=== PATIENT | female | born 1945 | race Two or more races ===

== ENCOUNTER 2019-04-20 17:57 | Inpatient (IN) | payer MEDICARE, OTHER ==
[~2019-04-20] VITALS: Ht 165.1 cm; Wt 75.7 kg
--- NOTE | 2019-04-20 18:00 | NUR ---
PT BIBA C/O ABDOMINAL PAIN WHICH STARTED TODAY. UNABLE TO SCALE PAIN. PT LETHARGIC, VSS, BREATHING EVEN AND UNLABORED ON ROOM AIR W/ AND NOTED. WILL CONTINUE TO MONITOR. PT CONNECTED TO CARDAIC MONITOR AND POX
[2019-04-20] MEDS ORDERED: MORPHINE SULFATE INJ 4 MG/ML DISP.SYRIN ONE (18:20)
[2019-04-20] MEDS ORDERED: ONDANSETRON HCL/PF 4 MG/2 ML VIAL ONE (18:20)
[2019-04-20] MEDS ORDERED: MORPHINE SULFATE INJ 2 MG/ML DISP.SYRIN IV ONE (18:30)
[2019-04-20] MEDS ORDERED: IV NS 0.9% 1,000 ML BAG IV ONE (18:30)
[2019-04-20] MEDS ORDERED: ONDANSETRON HCL/PF 4 MG/2 ML VIAL IVP ONE (18:30)
[2019-04-20 18:34] LABS: BASOPHILS # (AUTO) 0.1 /CMM (0.0-0.2); EOSINOPHILS % (AUTO) 2.7 % (0.0-6.0); HEMATOCRIT 28 % (33-45); HEMOGLOBIN 9.9 g/dL (11.5-14.8); LYMPHOCYTES # (AUTO) 0.5 /CMM (0.8-4.8); LYMPHOCYTES % (AUTO) 14.3 % (20.0-44.0); MEAN CORPUSCULAR HGB CONC 35 g/dl (31.0-36.0); MEAN CORPUSCULAR VOLUME 93 fL (82-100); MONOCYTES # (AUTO) 0.2 /CMM (0.1-1.30); MONOCYTES % (AUTO) 6.2 % (2.0-12.0); NEUTROPHILS # (AUTO) 2.4 /CMM (1.8-8.9); NEUTROPHILS % (AUTO) 74.8 % (43.0-81.0); PLATELET COUNT (AUTO) 90 /CMM (150-450); RED BLOOD CELL COUNT(AUTO) 3.05 MIL/uL (4.0-5.2); WHITE BLOOD COUNT (AUTO) 3.2 K/uL (4.3-11.0)
[2019-04-20 18:46] LABS: CALCIUM, SERUM 9.1 mg/dL (8.5-10.1); POTASSIUM 4.2 mmol/L (3.5-5.1)
[2019-04-20 18:51] LABS: ALBUMIN 3.2 g/dL (3.4-5.0); BILIRUBIN,DIRECT 0.3 mg/dL (0.0-0.2); BILIRUBIN,TOTAL 0.9 mg/dL (0.2-1.0)
[2019-04-20 18:57] LABS: APPEARANCE,URINE Clear (CLEAR); BILIRUBIN,URINE Negative (NEGATIVE); BLOOD, URINE Large Ery/uL (NEGATIVE); COLOR,URINE Yellow (YELLOW); KETONES,URINE Negative (NEGATIVE); LEUKOCYTE ESTERASE ,URINE Trace (NEGATIVE); NITRITE, URINE Negative (NEGATIVE); PROTEIN,URINE 100 mg/dl (NEGATIVE); UGLUCOSE 500 MG/DL mg/dL (NEGATIVE); UROBILINOGEN,URINE 0.2 EU/dL (0.2)
[2019-04-20 19:05] LABS: BAND % (MANUAL) 3 % (0.0-5.0); LYMPHOCYTES % (MANUAL) 15 % (16-48); MONOCYTES % (MANUAL) 5 % (0-11.0); NEUTROPHILS % (MANUAL) 77 (42-76)
[2019-04-20 19:33] LABS: BACTERIA,URINE 1+ /HPF (None Seen); RBC,URINE 81-100 /HPF (0-2); SQUAMOUS EPITHELIAL CELL,UR Few /HPF (None Seen)
[2019-04-20] MEDS ORDERED: IV NS 0.9% 250 ML IV ONE (19:53)
[2019-04-20] MEDS ORDERED: IOHEXOL-300 100 ML VIAL IV ONE (19:53)
[2019-04-20] MEDS ORDERED: CT SWABBABLE VALVE TRANS SET 1 EA INFUS.SET MC ONE (19:53)
[2019-04-20 20:55] VITALS: BP 156/85
[2019-04-20] MEDS ORDERED: CEFTRIAXONE 1GM BAG (ER ONLY) 50 ML IV ONE (21:30)
[2019-04-20] MEDS ORDERED: CEFTRIAXONE 1GM BAG (ER ONLY) 1 GM/50 ML PIGGYBACK IV ONE (21:30)
--- NOTE | 2019-04-20 21:40 | NUR ---
200-[facility]
--- NOTE | 2019-04-20 21:48 | NUR ---
REPORT GIVEN TO ANGELY DAVENPORT
[2019-04-20] MEDS ORDERED: EZET10TA16 PO (21:56)
[2019-04-20] MEDS ORDERED: DOCU-141 PO (21:58)
[2019-04-20] MEDS ORDERED: HYDROCODONE/APAP 5/325MG 1 EACH TABLET PO PRN (22:00)
[2019-04-20] MEDS ORDERED: ZOLPIDEM TARTRATE 5 MG TABLET PO PRN (22:00)
[2019-04-20] MEDS ORDERED: ACETAMINOPHEN 325 MG TABLET PO PRN (22:00)
[2019-04-20] MEDS ORDERED: MAGNESIUM HYDROXIDE 30 ML UDC PO PRN (22:00)
[2019-04-20] MEDS ORDERED: PANTOPRAZOLE 40 MG VIAL IV SCH (22:00)
[2019-04-20] MEDS ORDERED: ONDANSETRON HCL/PF 4 MG/2 ML VIAL IVP PRN (22:00)
[2019-04-20] MEDS ORDERED: Z GUARD REMEDY 2 OZ OINT TP PRN (22:00)
[2019-04-20] MEDS ORDERED: LORA10TA7 PO (22:07)
[2019-04-20] MEDS ORDERED: LISI-603 PO (22:07)
[2019-04-20] MEDS ORDERED: FERR325T23 PO (22:07)
[2019-04-20] MEDS ORDERED: OMEP40CA13 PO (22:07)
[2019-04-20] MEDS ORDERED: DONE10TA44 PO (22:07)
[2019-04-20] MEDS ORDERED: METF500S7 PO (22:07)
[2019-04-20] MEDS ORDERED: ASPI-1169 PO (22:07)
[2019-04-20] MEDS ORDERED: MEMA10TA56 PO (22:07)
[2019-04-20] MEDS ORDERED: METF-440 PO (22:09)
--- NOTE | 2019-04-20 22:40 | NUR ---
PT TRANSFERRED TO BED 200 IN STABLE CONDITION
--- NOTE | 2019-04-20 22:45 | NUR ---
RN OPEN NOTES RECEIVED PATIENT FROM ER VIA [facility] WITH FAMILY AT BEDSIDE. A/OX1-2. NO SIGNS OF DISTRESS OR DISCOMFORT. BREATHING EVEN AND UNLABORED. IV ACCESS IN RAC, PATENT AND INTACT, NO SIGNS OF REDNESS OR INFILTRATION. ORIENTED PATIENT AND FAMILY TO UNIT AND ROOM. BED IN LOW LOCKED POSITION WITH SIDE RAILS X2. CALL LIGHT WITHIN REACH. WILL CONTINUE TO MONITOR.
[2019-04-20] MEDS: IV NS 0.9% 1,000 ML IV PRN (23:21)
[2019-04-21] MEDS ORDERED: FOLIC ACID 1 MG TABLET PO SCH (00:30)
[2019-04-21] MEDS ORDERED: CYANOCOBALAMIN 500 MCG TABLET PO SCH (00:30)
[2019-04-21] MEDS ORDERED: PANTOPRAZOLE 40 MG VIAL IV SCH (01:00)
--- NOTE | 2019-04-21 07:26 | NUR ---
RN CLOSING NOTES PATIENT RESTING COMFORTABLY IN BED, EASILY AROUSABLE. A/OX1-2. NO SIGNS OF DISTRESS OR DISCOMFORT. BREATHING EVEN AND UNLABORED. IV ACCESS IN RAC WITH NS INFUSING, PATENT AND INTACT, NO SIGNS OF REDNESS OR INFILTRATION. ALL NEEDS MET. NO SIGNIFICANT CHANGES THROUGH THE NIGHT. BED IN LOW LOCKED POSITION WITH SIDE RAILS X2. CALL LIGHT WITHIN REACH. ENDORSED TO AM SHIFT FOR JOCELYNE.
[2019-04-21 07:42] LABS: BASOPHILS % (AUTO) 0.3 % (0.0-2.0); EOSINOPHILS % (AUTO) 0.7 % (0.0-6.0); HEMATOCRIT 28 % (33-45); HEMOGLOBIN 10.1 g/dL (11.5-14.8); LYMPHOCYTES # (AUTO) 0.7 /CMM (0.8-4.8); LYMPHOCYTES % (AUTO) 21.3 % (20.0-44.0); MEAN CORPUSCULAR HGB CONC 36 g/dl (31.0-36.0); MEAN CORPUSCULAR VOLUME 91 fL (82-100); MONOCYTES # (AUTO) 0.3 /CMM (0.1-1.30); MONOCYTES % (AUTO) 8.5 % (2.0-12.0); NEUTROPHILS # (AUTO) 2.2 /CMM (1.8-8.9); NEUTROPHILS % (AUTO) 69.2 % (43.0-81.0); PLATELET COUNT (AUTO) 91 /CMM (150-450); RED BLOOD CELL COUNT(AUTO) 3.12 MIL/uL (4.0-5.2); WHITE BLOOD COUNT (AUTO) 3.2 K/uL (4.3-11.0)
[2019-04-21 08:00] VITALS: BP 138/78
--- NOTE | 2019-04-21 08:00 | NUR ---
RN NOTES RECEIVED PATIENT IN THE BED A/O X2/3 ITALIAN SPEAKER NO ACUTE RESPIRATORY DISTRESS, V/S STABLE, REFUSED PAIN, PATIENT NPO. INFUSING NS AT 75 ML/HR ON RIGHT AC AREA INTACT, PATIENT USING DIAPER, BED ALARM ON. CALL LIGHT WITHIN TO REACH. SAFETY PRECAUTION MAINTAINED ALL THE TIME.
[2019-04-21 08:09] LABS: CALCIUM, SERUM 8.9 mg/dL (8.5-10.1); CREATININE 0.7 mg/dL (0.6-1.3); POTASSIUM 4.2 mmol/L (3.5-5.1)
[2019-04-21 09:22] LABS: EOSINOPHILS % (MANUAL) 2 % (0-4); LYMPHOCYTES % (MANUAL) 25 % (16-48); MONOCYTES % (MANUAL) 4 % (0-11.0); NEUTROPHILS % (MANUAL) 69 (42-76)
[2019-04-21] MEDS: ASPIRIN 81 MG TAB.CHEW PO SCH (10:03)
[2019-04-21] MEDS: METFORMIN 500 MG TABLET PO SCH ×2 (10:03→16:26)
[2019-04-21] MEDS: LORATADINE 10 MG TABLET PO SCH (10:03)
[2019-04-21] MEDS: CYANOCOBALAMIN 500 MCG TABLET PO SCH (10:03)
[2019-04-21] MEDS: DOCUSATE SODIUM 100 MG CAPSULE PO SCH (10:04)
[2019-04-21] MEDS: PANTOPRAZOLE 40 MG VIAL IV SCH (10:05)
[2019-04-21] MEDS: FOLIC ACID 1 MG TABLET PO SCH (10:05)
[2019-04-21] MEDS: LISINOPRIL (20MG) 20 MG TABLET PO SCH (10:05)
[2019-04-21] MEDS: EZETIMIBE 10 MG TABLET PO SCH (10:05)
[2019-04-21] MEDS: LACTULOSE 10 G/15 ML UDC (PYXIS) PO SCH ×2 (10:06→16:25)
[2019-04-21] MEDS: FERROUS SULFATE (325 MG) 325 MG/TAB TABLET PO SCH (10:07)
--- NOTE | 2019-04-21 10:19 | NUR ---
RN NOTES SEEN PATIENT BY Dr SALCEDO HOSPITALIST NPO PATIENT NPO AT THIS TIME, PUT CLEAR LIQUID ON DINNER TIME, ALSO SEEN AND DIE ATTACHER Dr [place] NO NEW ORDER NOW. PATIENT REFUSED PAIN, ADMINISTERED SCHEDULED MEDICATION WITH SMALL AMOUNT OF WATER. EDUCATED PATIENT HOW TO USE CALL LIGHT, NEEDS ATTENDED AND ANTICIPATED, PATIENT WOLOF SPEAKER, CALL LIGHT WITHIN TO REACH, BED ALARM ON SAFETY PRECAUTION MAINTAINED ALL THE TIME.
--- NOTE | 2019-04-21 14:24 | NUR ---
rn notes patient in the bed resting no pain at this time, call light within to reach, continued monitoring.
[2019-04-21 16:00] VITALS: BP 139/82
[2019-04-21] MEDS: IV NS 0.9% 1,000 ML IV PRN (16:22)
[2019-04-21] MEDS: CEFTRIAXONE 1 G in IV D5W 50 ML IV SCH (19:50)
--- NOTE | 2019-04-21 19:50 | NUR ---
RN OPENING NOTES RECEIVED PATIENT FROM ANGELY FERNANDEZ. PATIENT AWAKE IN BED. A/O X 2. NO SIGNS OF DISTRESS, NO SHORTNESS OF BREATH NOTED. BREATHING EVEN AND UNLABORED. NO COMPLAINTS OF PAIN OR DISCOMFORT AT THIS TIME. IV SITE RAC IN PLACE, INTACT, PATENT, NO SIGNS OF INFECTION/INFILTRATION, IVF INFUSING. SAFETY PRECAUTIONS IMPLEMENTED; CALL LIGHT WITHIN REACH, BED LOW, BED LOCKED, BILATERAL UPPER SIDE RAILS UP. WILL CONTINUE TO MONITOR.
[2019-04-21 20:00] VITALS: BP 141/77
[2019-04-22] MEDS: IV NS 0.9% 1,000 ML IV PRN (05:03)
[2019-04-22 06:54] LABS: THYROID STIMULATING HORMONE 3.823 uIU/mL (0.358-3.74); URIC ACID 3.5 mg/dL (2.6-7.2)
--- NOTE | 2019-04-22 06:54 | NUR ---
RN CLOSING NOTES PATIENT IS CURRENTLY ASLEEP, EASILY AWAKENED. NO SIGNS OF RESPIRATORY DISTRESS, NO SHORTNESS OF BREATH NOTED, RESPIRATIONS EVEN AND UNLABORED. NO SIGNS OF FACIAL GRIMACING INDICATING PAIN OR DISCOMFORT AT THIS TIME. IV SITE RAC IN PLACE, INTACT AND PATENT, NO SIGNS OF INFECTION/INFILTRATION, IVF INFUSING. PATIENT KEPT CLEAN, DRY, AND COMFORTABLE. ALL NEEDS MET ON SHIFT. ALL DUE MEDS GIVEN ORDERED WITH NO ADVERSE EFFECTS. SAFETY PRECAUTIONS IMPLEMENTED; CALL LIGHT WITHIN REACH, BED LOW, BED LOCKED, BILATERAL UPPER SIDE RAILS UP. WILL ENDORSE TO DAY SHIFT NURSE FOR CONTINUITY OF CARE.
[2019-04-22 06:56] LABS: CALCIUM, SERUM 8.4 mg/dL (8.5-10.1); CREATININE 0.8 mg/dL (0.6-1.3); MAGNESIUM 1.8 mg/dL (1.8-2.4); PHOSPHORUS 2.9 mg/dL (2.5-4.9); POTASSIUM 3.9 mmol/L (3.5-5.1)
[2019-04-22 08:00] VITALS: BP 138/81
--- NOTE | 2019-04-22 08:20 | NUR ---
RN OPENING NOTE PT WAS RECEIVED IN BED AT LOWEST AND LOCKED POSITION WITH SIDE RAILS UP X2, A/O X2 TAJIK SPEAKING BREATHING EVEN AND UNLABORED ON RA, NO S/S OF ANY DISTRESS OR PAIN NOTED AT THIS TIME, IV IS PATENT AND INTACT, AMBULATORY WITH ASSIST, SAFETY PRECAUTIONS IN PLACE, CALL LIGHT IN REACH, WILL MONITOR ACCORDINGLY.
[2019-04-22] MEDS: PANTOPRAZOLE 40 MG VIAL IV SCH (08:37)
[2019-04-22] MEDS: ASPIRIN 81 MG TAB.CHEW PO SCH (08:41)
[2019-04-22] MEDS: LORATADINE 10 MG TABLET PO SCH (08:42)
[2019-04-22] MEDS: FERROUS SULFATE (325 MG) 325 MG/TAB TABLET PO SCH (08:42)
[2019-04-22] MEDS: LACTULOSE 10 G/15 ML UDC (PYXIS) PO SCH ×2 (08:42→16:08)
[2019-04-22] MEDS: METFORMIN 500 MG TABLET PO SCH ×2 (08:42→16:08)
[2019-04-22] MEDS: FOLIC ACID 1 MG TABLET PO SCH (08:42)
[2019-04-22] MEDS: DOCUSATE SODIUM 100 MG CAPSULE PO SCH (08:42)
[2019-04-22] MEDS: LISINOPRIL (20MG) 20 MG TABLET PO SCH (08:43)
[2019-04-22] MEDS: CYANOCOBALAMIN 500 MCG TABLET PO SCH (08:44)
[2019-04-22] MEDS: EZETIMIBE 10 MG TABLET PO SCH (08:44)
[2019-04-22 16:00] VITALS: BP 147/78
--- NOTE | 2019-04-22 19:10 | NUR ---
RN medsurg opening notes Received Pt from morning nurse. Pt is alert and oriented X2. Pt speaks Guatemalan and able to make needs known. Pt's at the bedside. Respiration is normal. No SOB. No S/S of distress noted. IV sites at RAC# [id number] is clean, intact and patent. Pt is able to ambulate with bankruptcy legal assistant. Safety precautions is maintained. Bed at low position, brakes locked, side rails upX3 and call light is within reach. Will continue to monitor.
--- NOTE | 2019-04-22 19:13 | NUR ---
RN CLOSING NOTE PT IN BED AT LOWEST AND LOCKED POSITION WITH SIDE RAILS UP X2, A/O X2 MOZAMBICAN SPEAKING BREATHING EVEN AND UNLABORED WITH NO DISTRESS OR PAIN AT THIS TIME, IV IS PATENT AND INTACT, AMBULATORY WITH ASSIST, SAFETY PRECAUTIONS IN PLACE, CALL LIGHT IN REACH, ALL NEEDS ATTENDED TO, WILL ENDORSE TO NIGHT RN FOR JOCELYNE.
[2019-04-22] MEDS: CEFTRIAXONE 1 G in IV D5W 50 ML IV SCH (19:25)
[2019-04-22 19:49] VITALS: BP 120/76
[2019-04-22 20:00] VITALS: BP 120/76
[2019-04-22 23:53] LABS: URINE SODIUM, RANDOM 73 mmol/l (40-220)
[2019-04-23 00:01] LABS: OSMOLALITY,URINE 210 mOS/kg (340-1090)
[2019-04-23] MEDS: IV NS 0.9% 1,000 ML IV PRN (05:11)
--- NOTE | 2019-04-23 07:05 | NUR ---
ANGELY medsurg closing notes Pt is resting in bed comfortably. Respiration is normal. No SOB. No S/S of distress noted. VS is stable. Routine meds were given as ordered. Kept Pt clean, dry, warm and comfortable. Safety precautions is maintained. Bed at low position, brakes locked, side rails upX3 and call light is within reach. Will endorse to morning nurse for JOCELYNE. Addendum: 04/23/19 at 0717 by ANISA MATTHEWS RN IV sites at RAC# [id number] is clean, intact, patent and infusing well NS @ 125ml/hr.
--- NOTE | 2019-04-23 07:12 | NUR ---
RN OPENING NOTE PT WAS RECEIVED IN BED AT LOWEST AND LOCKED POSITION WITH SIDE RAILS UP X2, A/O X2-3 URDU SPEAKING BREATHING EVEN AND UNLABORED ON RA, NO S/S OF ANY DISTRESS OR PAIN NOTED AT THIS TIME, IV IS PATENT AND INTACT, AMBULATORY WITH ASSIST, SAFETY PRECAUTIONS IN PLACE, CALL LIGHT IN REACH, WILL MONITOR ACCORDINGLY.
[2019-04-23 07:30] VITALS: BP 132/84
[2019-04-23] MEDS: PANTOPRAZOLE 40 MG VIAL IV SCH (08:17)
[2019-04-23] MEDS: LACTULOSE 10 G/15 ML UDC (PYXIS) PO SCH (08:37)
[2019-04-23] MEDS: ASPIRIN 81 MG TAB.CHEW PO SCH (08:37)
[2019-04-23] MEDS: LORATADINE 10 MG TABLET PO SCH (08:37)
[2019-04-23 08:38] VITALS: BP 132/82
[2019-04-23] MEDS: FOLIC ACID 1 MG TABLET PO SCH (08:38)
[2019-04-23] MEDS: LISINOPRIL (20MG) 20 MG TABLET PO SCH (08:38)
[2019-04-23] MEDS: FERROUS SULFATE (325 MG) 325 MG/TAB TABLET PO SCH (08:38)
[2019-04-23] MEDS: DOCUSATE SODIUM 100 MG CAPSULE PO SCH (08:38)
[2019-04-23] MEDS: METFORMIN 500 MG TABLET PO SCH (08:38)
[2019-04-23] MEDS: CYANOCOBALAMIN 500 MCG TABLET PO SCH (08:39)
[2019-04-23] MEDS: EZETIMIBE 10 MG TABLET PO SCH (08:39)
[2019-04-23] MEDS ORDERED: CEPH-570 PO (11:00)
--- NOTE | 2019-04-23 15:06 | NUR ---
DISCHARGE NOTE PT WAS D/C AT THIS TIME IN MEDICALLY STABLE CONDITION BACK HOME AT THIS TIME WITH HER CAREGIVER HANNAH, CONSENT GIVEN BY MARY ANN CAMERON HER COUSIN FOR THE CARGEIVER HANNAH TO SIGN DISCHARGE PAPERWORK. IV AND ID BAND WERE REMOVED, ALL DISCHARGE PAPERWORK, EXITCARE, AND BELONGING LIST WERE SIGNED, DISCUSSED, AND HANDED TO THE PT. PRESCRIPTION WAS GIVEN TO THE PATIENT WELL. SKIN WAS NOTED TO BE DRY AND INTACT. ALL BELONGINGS WERE TAKEN BY THE PATIENT. ALL NEEDS WERE ATTENDED TO DURING HER STAY. PT LEFT AT THIS TIME IN MEDICALLY STABLE CONDITION BACK HOME WITH HANNAH IN THEIR PRIVATE CAR WHERE THEY WERE TAKEN DOWN VIA WHEELCHAIR.
== END 2019-04-23 15:00 | disposition home or self-care (01) | DRG 439 ==
LOC: ER 17:58 → MEDSG2 22:24
PROVIDERS: ADMIT Nurse Practitioner Acute Care; ATTEND Internal Medicine
DX: K85.90 Acute pancreatitis without necrosis or infection, unspecified (principal); E44.0 Moderate protein-calorie malnutrition; E87.1 Hypo-osmolality and hyponatremia; J90 Pleural effusion, not elsewhere classified; D61.818 Other pancytopenia; N39.0 Urinary tract infection, site not specified; K74.60 Unspecified cirrhosis of liver; E11.9 Type 2 diabetes mellitus without complications; E88.09 Other disorders of plasma-protein metabolism, not elsewhere classified; Z68.27 Body mass index [BMI] 27.0-27.9, adult; F03.90 Unspecified dementia, unspecified severity, without behavioral disturbance, psychotic disturbance, mood disturbance, and anxiety; Z86.73 Personal history of transient ischemic attack (TIA), and cerebral infarction without residual deficits; I10 Essential (primary) hypertension; E86.1 Hypovolemia; K52.9 Noninfective gastroenteritis and colitis, unspecified; Z85.05 Personal history of malignant neoplasm of liver
CPT/HCPCS: 36415; 71045-TC; 76705-TC; 80048-TC; 80061-TC; 80076-TC; 81000-TC; 82140-TC; 83690-TC; 83735-TC; 83935-TC; 84100-TC; 84300-TC; 84439-TC; 84443-TC; 84481; 84484-TC; 84550-TC; 85025-TC; 85730-TC; 87081-TC; 87086-TC; 87186-TC; 97116-TC; 97530-TC; C9113; G0378; J0696; J2270; J2405; J7030; J7050; J7060; Q9967